=== PATIENT | female | born 1970 | race Caucasian/White ===

== ENCOUNTER 2021-04-29 19:50 | Inpatient (IN) | payer MEDICARE, MEDICAID, SELFPAY ==
[2021-04-29 20:20] VITALS: BMI 38.2
[2021-04-29 22:00] VITALS: BP 145/85; PULSE 116; RESP 16; TEMP 36.4; O2SAT 92
[2021-04-29] MEDS: trazodone 50 mg Tablet PO (23:26)
[2021-04-29] MEDS: OLANZapine 5 mg ODT PO (23:26)
--- NOTE | 2021-04-29 23:30 | PC.NURSE ---
pt requested sleep and anxiety meds, Trazodone 50mg po and zyprexa zydis 5mg po given.
[2021-04-29 23:38] LABS: Glucose Point of Care 93 mg/dL (70-110)
--- NOTE | 2021-04-30 | PC.NURSE ---
pt resting quietly with both eyes closed.
[2021-04-30] MEDS: atorvastatin 40 mg Tablet 80 MG PO (09:12)
[2021-04-30] MEDS: duloxetine 60 mg Capsule PO ×2 (09:13→21:40)
[2021-04-30] MEDS: hydroCHLOROthiazide 25 mg Tablet 12.5 MG PO (09:13)
[2021-04-30] MEDS: pantoprazole DR 40 mg Tablet PO (09:14)
[2021-04-30] MEDS: multivitamin therapeutic Tablet 1 TAB PO (09:14)
[2021-04-30] MEDS: ferrous sulfate EC 325 mg Tablet PO (09:14)
[2021-04-30] MEDS: cyanocobalamin 1,000 mcg Tablet 1000 MCG PO (09:15)
[2021-04-30] MEDS: OXcarbazepine 300 mg Tablet 150 MG PO ×2 (09:15→21:35)
[2021-04-30] MEDS: lurasidone 80 mg Tablet 120 MG PO (09:15)
--- NOTE | 2021-04-30 09:16 | PC.NURSE ---
refused scheduled Lisinopril
[2021-04-30] MEDS: calcium carb-vit d 600mg/400unit 1 Tablet 1 EACH PO ×2 (09:29→23:05)
[2021-04-30] MEDS: acetaminophen 325 mg Tablet 650 MG PO (09:31)
[2021-04-30 11:26] LABS: Glucose Point of Care 114 mg/dL (70-110)
[2021-04-30 12:56] VITALS: BP 113/74; PULSE 98; RESP 18; TEMP 36.3; O2SAT 99
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
[2021-04-30 14:07] LABS: Glucose Point of Care 132 mg/dL (70-110)
[2021-04-30 17:10] LABS: Glucose Point of Care 165 mg/dL (70-110)
[2021-04-30 20:12] VITALS: BP 127/79; PULSE 95; RESP 21; TEMP 36.6; O2SAT 96
[2021-04-30 20:17] LABS: Glucose Point of Care 149 mg/dL (70-110)
[2021-04-30] MEDS: doxepin 50 mg Capsule 150 MG PO (21:34)
[2021-04-30] MEDS: hyDROXYzine 25 mg Capsule 50 MG PO (21:41)
[2021-04-30] MEDS: trazodone 50 mg Tablet PO (21:41)
--- NOTE | 2021-04-30 21:45 | PC.NURSE ---
pt requesting sleep and anxiety med, trazodone 50mg po for sleep and vistaril 50mg po for anxiety given.
[2021-04-30] MEDS: OLANZapine 5 mg ODT PO (22:21)
--- NOTE | 2021-04-30 22:45 | PC.NURSE ---
pt states she cant shut her brain off. requested is there anythig else i can have to help me rest? jacky robertson 5mg given.
--- NOTE | 2021-04-30 23:51 | PC.NURSE ---
pt resting quietly with both eyes closed.
[2021-05-01 06:00] VITALS: BP 120/79; PULSE 97; RESP 18; TEMP 36.6; O2SAT 95
[2021-05-01 06:47] VITALS: BP 120/79; PULSE 97; RESP 18; TEMP 36.6; O2SAT 95
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
== END 2021-05-01 07:35 | disposition home or self-care (01) | DRG 885 ==
PROVIDERS: Admitting Provider Psychiatry & Neurology Psychiatry; Visit Provider Psychiatry & Neurology Psychiatry
DX: F33.9 Major depressive disorder, recurrent, unspecified (principal); I10 Essential (primary) hypertension; K21.9 Gastro-esophageal reflux disease without esophagitis; F41.9 Anxiety disorder, unspecified; E66.9 Obesity, unspecified; Z63.0 Problems in relationship with spouse or partner; Z87.828 Personal history of other (healed) physical injury and trauma; Z81.8 Family history of other mental and behavioral disorders; Z88.0 Allergy status to penicillin; Z88.2 Allergy status to sulfonamides; Z68.38 Body mass index [BMI] 38.0-38.9, adult
CPT/HCPCS: 36416; 82962